=== PATIENT | male | born 1945 ===

== ENCOUNTER 2019-04-11 15:04 | Emergency (ER) | payer MEDICARE, OTHER ==
[~2019-04-11] VITALS: Ht 170.2 cm; Wt 107.5 kg
[2019-04-11 15:19] VITALS: BP 132/64
== END 2019-04-11 17:44 | disposition home or self-care (01) ==
LOC: ER 15:04
DX: J20.9 Acute bronchitis, unspecified (principal)
CPT/HCPCS: 71046